=== PATIENT | male | born 1970 | race Hispanic/Latino ===

== ENCOUNTER 2020-07-17 19:32 | Emergency (ER) | payer BC ==
[~2020-07-17] VITALS: Ht 157.5 cm; Wt 154.2 kg
[2020-07-17 20:20] LABS: BASOPHILS # (AUTO) 0.1 (0.0-0.1); BASOPHILS % 0.7 % (0.0-1.0); EOSINOPHILS # (AUTO) 0.3 (0.0-0.4); EOSINOPHILS % 3.8 % (0.0-6.0); HEMATOCRIT 26.2 % (38.2-49.6); LYMPHOCYTES # (AUTO) 1.7 (1.0-3.2); LYMPHOCYTES % 18.4 % (18.0-39.1); MEAN CORPUSCULAR VOLUME 69.5 fL (81-99); MONOCYTES % 10.8 % (4.4-11.3); NEUTROPHILS # (AUTO) 5.9 (2.1-6.9); PLATELET COUNT 349 x10e3/uL (140-360); RED BLOOD COUNT 3.77 x10e6/uL (4.3-5.7); RED CELL DISTRIBUTION WIDTH 22.4 % (11.7-14.4)
[2020-07-17 20:21] LABS: HEMOGLOBIN 6.8 g/dL (14.0-18.0)
[2020-07-17] MEDS ORDERED: SODIUM CHLORIDE 0.9% 250ML 250 ML IV ONE (20:30)
[2020-07-17 20:37] LABS: ALANINE AMINOTRANSFERASE 22 IU/L (0-55); ALBUMIN 3.5 g/dL (3.5-5.0); ALBUMIN/GLOBULIN RATIO 0.8 (0.8-2.0); ALKALINE PHOSPHATASE 122 IU/L (40-150); ANION GAP 15.6 mmol/L (8-16); BLOOD UREA NITROGEN 14 mg/dL (7-26); BUN/CREATININE RATIO 14 (6-25); CALCIUM 8.2 mg/dL (8.4-10.2); CARBON DIOXIDE 23 mmol/L (22-29); CHLORIDE 107 mmol/L (98-107); CREATINE KINASE 61 IU/L (30-200); CREATININE, SERUM 0.99 mg/dL (0.72-1.25); EST GLOMERULAR FILTRATION RATE > 60 ML/MIN (60-); GLUCOSE 96 mg/dL (74-118); LIPASE 52 U/L (8-78); POTASSIUM 3.6 mmol/L (3.5-5.1); SODIUM 142 mmol/L (136-145)
[2020-07-17 21:57] LABS: CLARITY,URINE SL CLOUDY (CLEAR); COLOR,URINE STRAW (YELLOW); KETONES,URINE NEGATIVE (NEGATIVE); LEUKOCYTE ESTERASE ,URINE NEGATIVE (NEGATIVE); NITRITE,URINE NEGATIVE (NEGATIVE); PROTEIN,URINE DIPSTICK 1+ (NEGATIVE); URINE UROBILINOGEN 1 mg/dL (0.2 - 1)
[2020-07-17] MEDS ORDERED: SODIUM CHLORIDE 0.9% 100 ML ONE (21:59)
[2020-07-17] MEDS ORDERED: IOPAMIDOL 370 MG/ML 200 ML INFUS..BTL INJ ONE (21:59)
[2020-07-17 22:09] LABS: EPITHELIAL CELLS,URINE FEW /LPF
[2020-07-17 22:10] LABS: YEAST,URINE FEW
[2020-07-17] MEDS ORDERED: HYDROCODONE/APAP 7.5MG-325MG 1 EA TAB ONE (23:18)
[2020-07-17] MEDS ORDERED: HYDROCODONE/APAP 7.5MG-325MG 1 EA TAB PO PRN (23:30)
[2020-07-18] MEDS ORDERED: CIPROFLOXACIN 400 MG/D5W 200ML 200 ML IV STA (00:09)
[2020-07-18] MEDS ORDERED: METRONIDAZOLE 500MG/NS 100ML 100 ML IV STA (00:09)
[2020-07-18] MEDS ORDERED: SODIUM CHLORIDE 0.9% 250ML 250 ML ONE (02:18)
[2020-07-18] MEDS ORDERED: FUROSEMIDE INJ 10 MG/ML 2 ML VIAL ONE (04:15)
[2020-07-18 04:32] VITALS: BP 147/86
== END 2020-07-18 04:20 | disposition home or self-care (01) ==
LOC: ER 19:45
DX: R10.84 Generalized abdominal pain (principal); K57.32 Diverticulitis of large intestine without perforation or abscess without bleeding; R79.89 Other specified abnormal findings of blood chemistry; D64.9 Anemia, unspecified; E66.01 Morbid (severe) obesity due to excess calories; R94.31 Abnormal electrocardiogram [ECG] [EKG]; Z11.52 Encounter for screening for COVID-19
CPT/HCPCS: 36415; 71045; 74174; 80053; 81001; 82550; 82553; 83690; 83880; 84484; 85025; 86850; 86900; 86920; 93005; 99284; J1940; J7050 ×3; P9016; Q9967; U0002

== ENCOUNTER → 2020-08-13 | Outpatient (CLI) | payer BC | LOC: US 07:48 | PROVIDERS: ATTEND Internal Medicine Gastroenterology | DX: K70.30 Alcoholic cirrhosis of liver without ascites (principal); D62 Acute posthemorrhagic anemia | CPT/HCPCS: 76705 ==

== ENCOUNTER → 2020-08-20 | Day surgery (SDC) | payer BC ==
[2020-08-17 09:41] LABS: BASOPHILS # (AUTO) 0.1 (0.0-0.1); BASOPHILS % 0.7 % (0.0-1.0); EOSINOPHILS # (AUTO) 0.3 (0.0-0.4); EOSINOPHILS % 3.7 % (0.0-6.0); HEMATOCRIT 33.1 % (38.2-49.6); LYMPHOCYTES # (AUTO) 1.7 (1.0-3.2); LYMPHOCYTES % 21.7 % (18.0-39.1); MEAN CORPUSCULAR HEMOGLOBIN 20.8 pg (28-32); MEAN CORPUSCULAR HGB CONC 27.2 g/dL (31-35); MEAN CORPUSCULAR VOLUME 76.6 fL (81-99); MONOCYTES # (AUTO) 0.9 (0.2-0.8); MONOCYTES % 11.2 % (4.4-11.3); NEUTROPHILS # (AUTO) 4.8 (2.1-6.9); NEUTROPHILS % 62.4 % (38.7-80.0); PLATELET COUNT 268 x10e3/uL (140-360); RED BLOOD COUNT 4.32 x10e6/uL (4.3-5.7); RED CELL DISTRIBUTION WIDTH 25.6 % (11.7-14.4)
[2020-08-17 10:04] LABS: ALANINE AMINOTRANSFERASE 24 IU/L (0-55); ALBUMIN 3.7 g/dL (3.5-5.0); ALBUMIN/GLOBULIN RATIO 0.8 (0.8-2.0); ALKALINE PHOSPHATASE 113 IU/L (40-150); ANION GAP 15.4 mmol/L (8-16); BLOOD UREA NITROGEN 11 mg/dL (7-26); BUN/CREATININE RATIO 14 (6-25); CALCIUM 8.3 mg/dL (8.4-10.2); CARBON DIOXIDE 25 mmol/L (22-29); CHLORIDE 106 mmol/L (98-107); CREATININE, SERUM 0.76 mg/dL (0.72-1.25); EST GLOMERULAR FILTRATION RATE > 60 ML/MIN (60-); GLUCOSE 120 mg/dL (74-118); POTASSIUM 3.4 mmol/L (3.5-5.1); SODIUM 143 mmol/L (136-145)
[2020-08-17 10:21] LABS: INR 1.08; PROTHROMBIN TIME 14.7 seconds (11.9-14.5)
[2020-08-17 10:22] LABS: PARTIAL THROMBOPLASTIN TIME 28.6 seconds (23.8-35.5)
[~2020-08-20] MED LIST: AMIODARONE HCL200 MG PO; AMLODIPINE BESY10 MG PO; BUSPIRONE HCL5 MG PO; CARVEDILOL12.5 MG PO; COLACE100 MG PO; CRESTOR10 MG PO; FUROSEMIDE40 MG PO; GLIPIZIDE ER5 MG PO; HYDROCODON-ACE1 EA12 PO; HYOSCYAMINE SULFATE 0.5 MG/ML INJ ONE; JARDIANCE25 MG PO; KETAMINE HCL INJ 50 MG/ML 10 ML VIAL ONE; LOSARTAN POTAS100 MG PO; LYRICA75 MG PO; METFORMIN HCL500 MG PO; METOCLOPRAMIDE HCL 10 MG/2ML VIAL ONE; MIDAZOLAM HCL 2 MG/2 ML VIAL ONE; OMEPRAZOLE40 MG PO; PAROXETINE HCL20 MG PO; PROPOFOL IV EMULSION 10 MG/ML 20 ML VIAL ONE; TARON FORTE CA1 EACH PO
[2020-08-20 10:32] LABS: BASOPHILS # (AUTO) 0.1 (0.0-0.1); BASOPHILS % 0.7 % (0.0-1.0); EOSINOPHILS # (AUTO) 0.2 (0.0-0.4); EOSINOPHILS % 3.1 % (0.0-6.0); HEMOGLOBIN 8.8 g/dL (14.0-18.0); LYMPHOCYTES # (AUTO) 1.3 (1.0-3.2); LYMPHOCYTES % 19.7 % (18.0-39.1); MEAN CORPUSCULAR HEMOGLOBIN 21.5 pg (28-32); MEAN CORPUSCULAR HGB CONC 28.4 g/dL (31-35); MEAN CORPUSCULAR VOLUME 75.6 fL (81-99); MONOCYTES # (AUTO) 0.7 (0.2-0.8); MONOCYTES % 10.6 % (4.4-11.3); NEUTROPHILS # (AUTO) 4.4 (2.1-6.9); NEUTROPHILS % 65.6 % (38.7-80.0); PLATELET COUNT 284 x10e3/uL (140-360); RED CELL DISTRIBUTION WIDTH 25.6 % (11.7-14.4)
[2020-08-20 10:46] LABS: ALANINE AMINOTRANSFERASE 36 IU/L (0-55); ALBUMIN 3.6 g/dL (3.5-5.0); ALBUMIN/GLOBULIN RATIO 0.9 (0.8-2.0); ALKALINE PHOSPHATASE 132 IU/L (40-150); ANION GAP 13.4 mmol/L (8-16); BLOOD UREA NITROGEN 6 mg/dL (7-26); BUN/CREATININE RATIO 9 (6-25); CALCIUM 8.1 mg/dL (8.4-10.2); CARBON DIOXIDE 24 mmol/L (22-29); CHLORIDE 104 mmol/L (98-107); CREATININE, SERUM 0.69 mg/dL (0.72-1.25); EST GLOMERULAR FILTRATION RATE > 60 ML/MIN (60-); GLUCOSE 128 mg/dL (74-118); POTASSIUM 3.4 mmol/L (3.5-5.1); SODIUM 138 mmol/L (136-145)
[2020-08-20 11:03] LABS: INR 1.17; PROTHROMBIN TIME 15.7 seconds (11.9-14.5)
[2020-08-20 11:04] LABS: PARTIAL THROMBOPLASTIN TIME 29.9 seconds (23.8-35.5)
[2020-08-20 14:00] VITALS: BP 127/63
[2020-08-20 14:28] LABS: % IRON SATURATION 4 % (15-50); IRON 13 ug/dL (65-175); TOTAL IRON BINDING CAPACITY 336 ug/dL (261-478); TRANSFERRIN 240 mg/dL (174-364)
== END | disposition home or self-care (01) ==
LOC: OR 09:46
PROVIDERS: ATTEND Internal Medicine Gastroenterology
DX: K57.92 Diverticulitis of intestine, part unspecified, without perforation or abscess without bleeding (principal); D12.2 Benign neoplasm of ascending colon; K29.50 Unspecified chronic gastritis without bleeding; D62 Acute posthemorrhagic anemia; K20.90 Esophagitis, unspecified without bleeding; K70.30 Alcoholic cirrhosis of liver without ascites; K44.9 Diaphragmatic hernia without obstruction or gangrene; Z98.84 Bariatric surgery status; K64.8 Other hemorrhoids; K70.31 Alcoholic cirrhosis of liver with ascites; I25.119 Atherosclerotic heart disease of native coronary artery with unspecified angina pectoris; I42.9 Cardiomyopathy, unspecified; I11.0 Hypertensive heart disease with heart failure; I50.32 Chronic diastolic (congestive) heart failure; I48.20 Chronic atrial fibrillation, unspecified; E11.9 Type 2 diabetes mellitus without complications; E78.5 Hyperlipidemia, unspecified; E66.01 Morbid (severe) obesity due to excess calories; F17.210 Nicotine dependence, cigarettes, uncomplicated; Z88.6 Allergy status to analgesic agent; Z88.8 Allergy status to other drugs, medicaments and biological substances; Z01.812 Encounter for preprocedural laboratory examination; Z20.822 Contact with and (suspected) exposure to COVID-19; Z79.84 Long term (current) use of oral hypoglycemic drugs; Z68.44 Body mass index [BMI] 60.0-69.9, adult
CPT/HCPCS: 36415 ×2; 43239; 45385; 80053 ×2; 82607; 82746; 82948; 83540; 84466; 85025 ×2; 85045; 85610 ×2; 85730 ×2; J1980; J2250; J2704; J2765; U0002; 45378